=== PATIENT | male | born 1940 | race Caucasian/White ===

== ENCOUNTER 2021-05-26 11:34 | Observation (INO) | payer MEDICARE, BC ==
[2021-05-26] MEDS ORDERED: Morphine 2 MG/ML SYRINGE IVPUSH STA (12:43)
[2021-05-26] MEDS ORDERED: Ondansetron 4 MG/2 ML SDV IVPUSH STA ×2 (12:47→15:01)
[2021-05-26] MEDS: Sodium Chloride 0.9% 10 ML Syringe FLUSH PRN ×5 (13:04→22:49)
[2021-05-26] MEDS ORDERED: Ketorolac 30 MG/ML SDV IVPUSH STA (13:58)
[2021-05-26] MEDS ORDERED: Labetalol 20 MG/4 ML Syringe IVPUSH STA (13:58)
[2021-05-26] MEDS ORDERED: Morphine 4 MG/ML VIAL IVPUSH STA (13:58)
[2021-05-26] MEDS ORDERED: Cyclobenzaprine 10 MG Tab PO STA (14:02)
[2021-05-26] MEDS ORDERED: hydrALAZINE 20 MG/ML SDV IVPUSH STA (14:28)
[2021-05-26] MEDS ORDERED: HYDROmorphone 2 MG/ML SDV IVPUSH STA (15:01)
[2021-05-26] MEDS ORDERED: diphenhydrAMINE 50 MG/ML SDV IVPUSH PRN (18:08)
[2021-05-26] MEDS ORDERED: Ondansetron 4 MG/2 ML SDV IV PRN (18:08)
[2021-05-26] MEDS ORDERED: Ketorolac 30 MG/ML SDV IVPUSH PRN (18:08)
[2021-05-26] MEDS ORDERED: Morphine 2 MG/ML SYRINGE IVPUSH PRN (18:08)
[2021-05-26] MEDS ORDERED: Albuterol 8 GM Inhaler INH PRN (18:18)
[2021-05-26] MEDS ORDERED: Loratadine 10 MG Tab PO PRN (18:25)
[2021-05-26] MEDS ORDERED: methylPREDNISolone Sodium Succinate 125 MG/2 ML SDV IVPUSH STA (18:27)
[2021-05-26] MEDS ORDERED: GAMMA GLOBULIN IV SCH (18:30)
[2021-05-26] MEDS ORDERED: Latanoprost 0.005% Ophth Soln 2.5 ML Bottle EYEBOTH SCH (21:00)
[2021-05-26] MEDS: Hydroxychloroquine 200 MG Tab *PTOM PO SCH (21:41)
[2021-05-27] MEDS ORDERED: Acetaminophen/HYDROcodone 325-5 MG Tab PO PRN (01:20)
[2021-05-27] MEDS ORDERED: Sodium Chloride 0.9% 1,000 ML IV SCH (01:30)
[2021-05-27] MEDS ORDERED: Tamsulosin 0.4 MG Cap.ER *PTOM PO SCH (09:00)
[2021-05-27] MEDS ORDERED: Multivitamins with Iron/Calcium/Folic Acid/Minerals Tab *PTOM PO SCH (09:00)
[2021-05-27] MEDS ORDERED: Losartan 100 MG Tab *PTOM PO SCH (09:00)
[2021-05-27] MEDS ORDERED: amLODIPine 5 MG Tab *PTOM PO SCH (09:00)
[2021-05-27] MEDS ORDERED: PREDNISONE 1 MG PO SCH (09:00)
[2021-05-27] MEDS ORDERED: Hydrochlorothiazide 25 MG Tab PO SCH (09:00)
[2021-05-27] MEDS: Hydroxychloroquine 200 MG Tab *PTOM PO SCH (11:25)
[2021-05-27] MEDS ORDERED: Cholecalciferol (Vitamin D3) 25 MCG Tab *PTOM PO SCH (12:00)
[2021-05-27] MEDS ORDERED: Metoprolol Succinate 25 MG Tab.ER *PTOM PO SCH (12:00)
== END 2021-05-27 13:40 | disposition home or self-care (01) ==
LOC: FB.ED 11:34 → FB.MS 19:00
PROVIDERS: ADMIT Family Medicine; ATTEND Family Medicine
DX: M25.551 Pain in right hip (principal); I13.0 Hypertensive heart and chronic kidney disease with heart failure and stage 1 through stage 4 chronic kidney disease, or unspecified chronic kidney disease; E11.22 Type 2 diabetes mellitus with diabetic chronic kidney disease; N18.2 Chronic kidney disease, stage 2 (mild); I50.9 Heart failure, unspecified; N17.9 Acute kidney failure, unspecified; E86.0 Dehydration; N40.0 Benign prostatic hyperplasia without lower urinary tract symptoms; D63.1 Anemia in chronic kidney disease; I25.10 Atherosclerotic heart disease of native coronary artery without angina pectoris; J44.9 Chronic obstructive pulmonary disease, unspecified; C91.10 Chronic lymphocytic leukemia of B-cell type not having achieved remission; Z88.8 Allergy status to other drugs, medicaments and biological substances; Z88.0 Allergy status to penicillin; Z95.5 Presence of coronary angioplasty implant and graft; Z96.641 Presence of right artificial hip joint; Z79.52 Long term (current) use of systemic steroids; Z79.899 Other long term (current) drug therapy; Z87.891 Personal history of nicotine dependence; Z20.822 Contact with and (suspected) exposure to COVID-19
CPT/HCPCS: 36415; 73502-RT; 80048; 80053; 82550; 85025; 96374; 96375; 96376; 97166-GO; 97530-GO; 99283; 99284-25; A9270-GY; G0378; J0360; J1170; J1885; J2270; J2405; J2930; J3490; J7030; J7512; U0002